=== PATIENT | male | born 1970 | race Caucasian/White ===

== ENCOUNTER 2022-12-19 15:37 | Emergency (ER) | payer MEDICAID ==
[~2022-12-19] VITALS: Ht 172.7 cm; Wt 91.0 kg
[2022-12-19 15:55] VITALS: BP 148/85
[2022-12-19] MEDS ORDERED: IBUPROFEN 600MG TABLET PO STA (15:55)
[2022-12-19 16:32] LABS: HEMATOCRIT. 33.7 % (42.0-52.0); HEMOGLOBIN. 10.1 g/dL (14.0-18.0); MEAN CORPUSCULAR HEMOGLOBIN 19.2 pg (28.0-32.0); MEAN CORPUSCULAR VOLUME 63.9 fL (80.0-94.0); MEAN PLATELET VOLUME 9.8 fl (7.4-10.4); PLATELET 524 x1000/uL (130-400); RED BLOOD CELL COUNT 5.28 mill/uL (4.7-6.1); RED CELL DISTRIBUTION WIDTH 20.5 % (11.6-14.6)
[2022-12-19 16:36] LABS: CHLORIDE 103 mEq/L (98-107)
[2022-12-19 16:57] LABS: PLATELET ESTIMATE INCREASED
== END 2022-12-19 17:44 | disposition home or self-care (01) ==
LOC: ER 15:37
DX: R10.30 Lower abdominal pain, unspecified (principal); K63.2 Fistula of intestine; I10 Essential (primary) hypertension
CPT/HCPCS: 36415; 80053; 85025; 99283